=== PATIENT | female | born 1955 ===

== ENCOUNTER 2022-11-13 09:45 | Inpatient (IN) | payer OTHER ==
[~2022-11-13] VITALS: Ht 154.9 cm; Wt 78.5 kg
[2022-11-13] MEDS ORDERED: ZESTRIL5 MG PO (11:49)
[2022-11-13] MEDS ORDERED: PRILOSEC OTC20 MG PO (11:50)
[2022-11-13] MEDS ORDERED: SIMVASTATIN10 MG PO (11:50)
[2022-11-13] MEDS ORDERED: TOPROL XL25 M1 PO (11:50)
[2022-11-13] MEDS ORDERED: RESTORIL30 M1 PO (11:50)
[2022-11-13] MEDS ORDERED: LATANOPROST 0.7.5 ML OP (11:51)
[2022-11-15] MEDS ORDERED: LATANOPROST2.5 ML (07:54)
[2022-11-15] MEDS ORDERED: FAMOTIDINE20 MG (07:54)
[2022-11-15] MEDS ORDERED: DICLOFENAC POTA50 MG (07:54)
[2022-11-15] MEDS ORDERED: HYDROCHLOROTH12.5 MG (07:54)
[2022-11-15] MEDS ORDERED: OMEPRAZOLE20 MG (07:54)
[2022-11-15] MEDS ORDERED: FLUOXETINE HCL20 MG (07:54)
[2022-11-15] MEDS ORDERED: OPTIVE EYE DROP15 ML (07:55)
== END 2022-11-18 13:01 | disposition home or self-care (01) | DRG 331 ==
LOC: SURH 11-15 07:00 → O/R 11-15 07:25 → SURH 11-15 07:25
PROVIDERS: ADMIT Colon & Rectal Surgery; ATTEND Colon & Rectal Surgery
PROC: 0DBP4ZZ Excision of Rectum, Percutaneous Endoscopic Approach (ICD-10-PCS; 2022-11-15)
PROC: 0DJD8ZZ Inspection of Lower Intestinal Tract, Via Natural or Artificial Opening Endoscopic (ICD-10-PCS; 2022-11-15)
PROC: 3E0F7SF Introduction of Other Gas into Respiratory Tract, Via Natural or Artificial Opening (ICD-10-PCS; 2022-11-15)
PROC: 0DTN4ZZ Resection of Sigmoid Colon, Percutaneous Endoscopic Approach (ICD-10-PCS; principal; 2022-11-15 07:00)
DX: K57.32 Diverticulitis of large intestine without perforation or abscess without bleeding (principal); R10.32 Left lower quadrant pain